=== PATIENT | male | born 1995 | race Caucasian/White ===

== ENCOUNTER 2024-05-11 16:58 | Emergency (ER) | payer SELFPAY ==
[2024-05-11 17:09] VITALS: BP 121/77; PULSE 104; RESP 18; TEMP 36.7; O2SAT 97; BMI 18.7
--- NOTE | 2024-05-11 17:35 | EKG_ITS ---
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
--- NOTE | 2024-05-11 17:39 | ED_ITS ---
HPI - Recheck/Abnormal Lab/Rx General Chief Complaint: Recheck/Abnormal Lab/Rx Stated Complaint: Diabetic, Abnormal EKG Time Seen by Provider: 05/11/24 17:21 Source: patient Mode of arrival: Ambulatory History of Present Illness HPI narrative: 29-year-old male with history of type 1 diabetes on insulin presents for evaluation of possible abnormal EKG. Patient states he has been under lot of stress recently and just took a long flight from [place] to [place] to help his sister drive back down to [place]. He states that he has been under lot of stress with his work and is currently in the middle of a disagreement with his boss. He smoked a joint and started to feel like his heart was beating extremely quickly. He called EMS for evaluation. They told him that his EKG was slightly abnormal and he should be evaluated in the emergency department. By the time of arrival to the emergency department patient states he feels much better and back to normal. He states he no longer feels like his heart is beating uncontrollably. He says that he feels like he had a panic attack. Related Data Allergies Allergy/AdvReac Type Severity Reaction Status Date / Time No Known Drug Allergies Allergy Verified 05/11/24 17:19 Patient History Social History Smoking Status: Current every day smoker Smoking Status: Current every day smoker tobacco type: vaping alcohol intake frequency: 0-2 drinks per day Substance Use Type: marijuana Exam Initial Vital Signs Initial Vital Signs: Vital Signs Temperature 98.1 F 05/11/24 17:09 Pulse Rate 104 H 05/11/24 17:09 Respiratory Rate 18 05/11/24 17:09 Blood Pressure 121/77 05/11/24 17:09 Pulse Oximetry 97 05/11/24 17:09 Oxygen Delivery Method Room Air 05/11/24 17:09 Const: Awake, alert, no acute distress, nontoxic appearing Cardiac: regular rate, regular rhythm RESP: unlabored, clear bilaterally, no wheezing Skin: Warm, Dry, intact, no rashes Neuro: AO x3, CN II-XII grossly intact, moves all extremities Course Vital Signs Vital signs: Vital Signs - 8 hr 05/11/24 17:09 Temperature 98.1 F Pulse Rate 104 H Respiratory Rate 18 Blood Pressure 121/77 Pulse Oximetry 97 Oxygen Delivery Method Room Air MDM - Recheck/Abnormal Lab/Rx Lab Data Labs: Point of Care Testing Glucose POC 93 ECG Data Interpretation: Normal sinus rhythm at 100 beats per minute, normal CO, no ST T wave changes, no STEMI MDM Narrative Medical decision making narrative: Patient presenting for possible outside abnormal EKG. Patient states he had a panic attack, but feels back to normal now. He comes with a rhythm strip given to him by EMS. No abnormalities identified on this rhythm strip. EKG in the emergency department is normal sinus rhythm. Patient reports feeling back to normal. Patient declines additional workup, stating that he will call his primary care doctor in [place] for an appointment when he gets back from his drive down to [place]. Discharge Plan Departure Patient Disposition: Home Clinical Impression: Stress reaction Instructions: Stress (Alternative Therapy) Activity Restrictions/Additional Instructions: Your EKG today was normal. I do not see any concerning rhythm activity at this time. Follow up with your primary care doctor when you get back to [place] if you continue to experience episodes of anxiety or fast heart rate. Stand Alone Forms: Patient Portal/API
== END 2024-05-11 17:50 | disposition home or self-care (01) ==
PROVIDERS: Emergency Provider Emergency Medicine
DX: F43.0 Acute stress reaction (principal)
CPT/HCPCS: 82962; 93005; 99281; 99283